=== PATIENT | male | born 1965 ===

== ENCOUNTER 2018-12-09 06:44 | Day surgery (SDC) | payer OTHER ==
[~2018-12-09] VITALS: Ht 188 cm; Wt 99.8 kg
[2018-12-09 11:33] VITALS: BP 143/74
== END 2018-12-09 12:40 | DRG 352 ==
LOC: PO 06:44 → ORM 06:44
PROVIDERS: ATTEND Surgery
PROC: 0YU50JZ Supplement Right Inguinal Region with Synthetic Substitute, Open Approach (ICD-10-PCS; principal; 2018-12-09)
PROC: 0VBF0ZZ Excision of Right Spermatic Cord, Open Approach (ICD-10-PCS; 2018-12-09)
DX: K40.90 Unilateral inguinal hernia, without obstruction or gangrene, not specified as recurrent (principal)
CPT/HCPCS: C9290; J1100